=== PATIENT | male | born 1955 ===

== ENCOUNTER 2019-12-20 06:46 | Day surgery (SDC) | payer OTHER | END 2019-12-20 16:00 | disposition home or self-care (01) | LOC: CIR.AMB 06:46 → EDBD 08:00 → CIR.AMB 08:00 | PROVIDERS: ATTEND Orthopaedic Surgery Hand Surgery | DX: M19.031 Primary osteoarthritis, right wrist (principal); Z20.828 Contact with and (suspected) exposure to other viral communicable diseases | CPT/HCPCS: 25825; 64782; C1776 ==